=== PATIENT | female | born 2000 | race Caucasian/White ===

== ENCOUNTER 2023-02-10 15:08 | Outpatient (CLI) | payer OTHER | END 2023-02-10 15:09 | disposition home or self-care (01) | LOC: SCSRAD 15:08 | PROVIDERS: ATTEND Nurse Practitioner Family | DX: R06.02 Shortness of breath (principal) | CPT/HCPCS: 71046 ==

== ENCOUNTER 2024-03-18 23:40 | Emergency (ER) | payer BC, OTHER ==
[2024-03-19] MEDS ORDERED: Cyclobenzaprine 10 MG TAB ONE (01:36)
[2024-03-19] MEDS ORDERED: Ibuprofen 200 MG TAB ONE ×2 (01:36→01:37)
== END 2024-03-19 01:42 | disposition home or self-care (01) ==
LOC: ERS 23:40
DX: S09.90XA Unspecified injury of head, initial encounter (principal); Y04.8XXA Assault by other bodily force, initial encounter
CPT/HCPCS: 99282